=== PATIENT | male | born 1990 | race Caucasian/White ===

== ENCOUNTER 2020-02-25 12:30 | Outpatient (RCR) | payer OTHER, SELFPAY | END 2020-04-27 23:59 | disposition home or self-care (01) | LOC: ANHDMC 12:30 | PROVIDERS: PCP Family Medicine; Visit Provider Family Medicine | DX: E10.65 Type 1 diabetes mellitus with hyperglycemia (principal); Z71.89 Other specified counseling | CPT/HCPCS: G0108 ==